=== PATIENT | female | born 1975 | race Caucasian/White ===

== ENCOUNTER 2023-01-23 05:26 | Day surgery (SDC) | payer BC, OTHER ==
[2023-01-16 15:42] LABS: BASOPHILS # (AUTO) 0.1 X10'3 (0-0.2); BASOPHILS % (AUTO) 1.1 % (0-1); EOSINOPHILS # (AUTO) 0.7 X10'3 (0-0.9); EOSINOPHILS % (AUTO) 7.3 % (0-6); LYMPHOCYTES # (AUTO) 2.5 X10'3 (1.1-4.8); LYMPHOCYTES % (AUTO) 27.6 % (21-51); MEAN CORPUSCULAR HEMOGLOBIN 26.7 PG (27.0-31.0); MEAN CORPUSCULAR HGB CONC 32.4 g/dL (33.0-36.5); MEAN CORPUSCULAR VOLUME 82.4 FL (78-98); MEAN PLATELET VOLUME 9.2 FL (7.4-10.4); MONOCYTES # (AUTO) 0.8 X10'3 (0-0.9); MONOCYTES % (AUTO) 8.8 % (2-12); NEUTROPHILS % (AUTO) 55.2 % (42-75); PRE OP HEMATOCRIT 37.1 % (35.0-45.0); PRE OP PLATELET COUNT 276 X10'3 (140-440); RED CELL DISTRIBUTION WIDTH 16.6 % (11.5-14.5)
[2023-01-16 15:48] LABS: ALBUMIN 3.6 G/DL (3.4-5.0); ALKALINE PHOSPHATASE 64 IU/L (46-116); BLOOD UREA NITROGEN 24 MG/DL (7-18); BUN/CREATININE RATIO 34.3 (10.0-20.0); CALCIUM 8.6 MG/DL (8.5-10.1); CHLORIDE 105 MMOL/L (99-107); PRE OP ALT 46 U/L (30-65); PRE OP ANION GAP 8 (8-16); PRE OP AST 26 U/L (10-37); PRE OP BILIRUB, TOTAL 0.3 MG/DL (0.0-1.0); PRE OP GLUCOSE 105 MG/DL (70-104); PRE OP POTASSIUM 4.2 MMOL/L (3.4-5.1); PRE OP SODIUM 139 MMOL/L (135-145); TOTAL CARBON DIOXIDE 26.1 MMOL/L (24-32); TOTAL PROTEIN 7.2 G/DL (6.4-8.2); eGFR 90 ML/MIN
[2023-01-16 15:51] LABS: BILIRUBIN,URINE NEGATIVE (Neg); CLARITY,URINE CLEAR (Clear); COLOR,URINE STRAW (Yellow); GLUCOSE, URINE NEGATIVE (Neg); KETONES,URINE NEGATIVE (Neg); LEUKOCYTE ESTERASE ,URINE NEGATIVE (Neg); NITRITES, URINE NEGATIVE (Neg); OCCULT BLOOD,URINE NEGATIVE (Neg); PH,URINE 5.5 (4.8-8.0); PROTEIN,URINE NEGATIVE (Neg); UROBILINOGEN,URINE 0.2 E.U/dL (0.2-1.0)
[2023-01-16 16:13] LABS: UA COLLECTION TYPE CLN CATCH MIDSTREAM
[~2023-01-23] VITALS: Ht 170.2 cm; Wt 91.4 kg
[2023-01-23] VITALS (10 sets, daily range): BP systolic 107–125; BP diastolic 65–75; PULSE 51–90; RESP 12–16; TEMP 98.4; O2SAT 98–100
[~2023-01-23 05:26] MED LIST: CYAN50007 PO; DICL-343 PO; IRON PO; MULT-1074 PO; ringers solution, lacted 1,000 ML IV SCH
[2023-01-23] MEDS ORDERED: cefazolin 2gm/D5W 100mL 100 ML IV ONE (05:30)
[2023-01-23] MEDS ORDERED: famotidine 20mg tablet PO ONE (05:30)
[2023-01-23] MEDS ORDERED: BUPIVAcaine/PF 2.5 mg/ml (0.25%) 30ml vial ONE (06:40)
[2023-01-23] MEDS ORDERED: rocuronium 10mg/ml inj IV ONE (07:24)
[2023-01-23] MEDS ORDERED: propofol inj 20 ML IV ONE (07:24)
[2023-01-23] MEDS ORDERED: midazolam 1 mg/ML 2ml injection ONE (07:24)
[2023-01-23] MEDS ORDERED: fentaNYL/PF 50MCG/1 ML 2ML syringe ONE (07:24)
[2023-01-23] MEDS ORDERED: ringers solution, lacted 1,000 ML IV SCH (07:30)
[2023-01-23] MEDS ORDERED: HYDROmorphone/PF 0.2 MG/ML SYRINGE IV PRN ×2 (07:30)
[2023-01-23] MEDS ORDERED: acetaminophen 1,000mg/100ml IV 100 ML IV PRN (07:30)
[2023-01-23] MEDS ORDERED: ondansetron/PF 4mg/2ml inj IV PRN (07:30)
[2023-01-23] MEDS ORDERED: meperidine/PF 25mg/ml syringe IV PRN ×3 (07:30)
[2023-01-23] MEDS ORDERED: ketorolac trometh. 30mg/ml inj. IV ONE (07:30)
[2023-01-23] MEDS ORDERED: sevoflurane 250ml liquid IH ONE (07:33)
[2023-01-23] MEDS ORDERED: LIDOcaine 2% (20mg/ml) 5ml vial ONE (07:33)
[2023-01-23] MEDS ORDERED: ondansetron/PF 4mg/2ml inj ONE (07:40)
[2023-01-23] MEDS ORDERED: dexamethasone sod phosphate 4mg/ml inj. ONE (07:40)
[2023-01-23] MEDS ORDERED: sugammadex 200mg/2ml injection IV ONE (08:58)
--- NOTE | 2023-01-23 09:11 | NUR ---
Received from OR via [facility] , accompanied by Anesthesiologist [place] and report given by Anesthesiolgist. PATIENT WITH 20G PIV IN RIGHT UE RUNNING LR AT 100. 10L MASK ON WITH 100% SATURATIONS. 3 ABDOMINAL LAP SITES PRESENT THAT ARE CDI. GLUE PRESENT. PATIENT DENIES PAIN AT THIS TIME. ALERT AND ROUSABLE AT THIS TIME- WILL CONTINUE TO ASSESS AND TREAT FOR PAIN NEEDED. Addendum: 01/23/23 at 0922 by Avtar Patterson - [place] NE[place] Amended: Links added.
--- NOTE | 2023-01-23 10:21 | NUR ---
ABLE TO SAFELY AMBULATE AND TRANSFER SELF. IV TAKEN OUT WITHOUT ANY COMPLICATIONS. ALL DISCHARGE INSTRUCTIONS COVERED WITH PATIENT AND ALL QUESTIONS ANSWERED. PATIENT TAKEN OUT VIA WHEELCHAIR TO PERSONAL VEHICLE WHERE FAMILY/FRIEND DROVE PATIENT HOME. Addendum: 01/23/23 at 1039 by Avtar Farr RN, RN Amended: Links added.
== END 2023-01-23 10:44 | disposition home or self-care (01) ==
LOC: PRE-OP 05:26
PROVIDERS: ATTEND Surgery
DX: K40.90 Unilateral inguinal hernia, without obstruction or gangrene, not specified as recurrent (principal); D64.9 Anemia, unspecified; Z98.84 Bariatric surgery status; Z98.890 Other specified postprocedural states; Z88.5 Allergy status to narcotic agent; Z79.899 Other long term (current) drug therapy; Z83.3 Family history of diabetes mellitus
CPT/HCPCS: 36415; 49650; 80053; 81003; 82948; 85025; C1781; J0131; J0690; J1100; J1885; J2250; J2405; J2704; J3010; J3490; J7030; J7120; S2900; Z7506; Z7508; Z7512; A4215; A4618; C1758